=== PATIENT | male | born 1955 | race African-American/Black ===

== ENCOUNTER 2019-04-20 19:49 | Emergency (ER) | payer OTHER ==
--- NOTE | 2019-04-20 19:57 | ED Physician Documentation ---
General Adult - HISTORIAN Historian: patient - HPI Stated Complaint: chest pain Chief Complaint: General Adult Additional Information: Patient presents to ED via EMS from assisted after being found down unresponsive. Patient was in cardiac/pulmonary arrest when found, CPR was started, Narcan 4mg x 5 was given intranasal. Patient regained consciousness. He denies taking any drugs and was complaining of chest pain after CPR. He was placed on 5 liters of oxygen and brought to the ED. Upon arrival he was awake, alert, transferred himself from [facility] to bed. SaO2 90% on room air. Onset: hours (1) Timing: better Severity: severe - ROS CONST: denies: fever EYES/ENT: denies: problems with vision CVS/RESP: chest pain. denies: shortness of breath, cough GI/: denies: vomiting, nausea MS/SKIN/LYMPH: none NEURO/PSYCH: denies: headache - PAST HX Past History: none Other History: none Surgeries/Procedures: none Allergies/Adverse Reactions: Allergies Allergy/AdvReac Type Severity Reaction Status Date / Time No Known Allergies Allergy Verified 04/20/19 20:25 Home Medications: Ambulatory Orders Medication Instructions Recorded NK 04/20/19 - SOCIAL HX Smoking History: cigarettes, greater than 1 pack/day (90 pack year history) Alcohol Use: none Drug Use: none - FAMILY HX Family History: No - REVIEWED ASSESSMENTS Nursing Assessment Reviewed: Yes Vitals Reviewed: Yes Progress - Progress Progress: 2040 Patient states he is still sleepy. Hard to take a deep breath due to chest pain. Will give more Narcan to be safe. 2216 Patient is more awake and alert. SaO2 > 90% since Narcan given. Ok for discharge. - EKG/XRAY/CT Comments: 1954 [address] elevation ED Results Lab/Radiology - Lab Results Lab Results: CBC - WNL CMP - WNL Trop - <0.012 - Radiology Radiology Impressions: Report Submission Date: Apr 20, 2019 8:32:23 PM RATING OFFICER Patient Study Name: CHELA EDWARDS Date: Apr 20, 2019 8:04:01 PM RATING OFFICER Modality Type: DX Gender: M Description: CHEST 1VIEW : 57 Institution: [facility] Physician: RALF QUIROGA CHEST 1VIEW HISTORY: CHEST PAIN FINDINGS: Erect AP portable chest x-ray dated April 20, 2019 at 20:04 demonstrates lungs to be clear of focal infiltrates and expanded bilaterally. Cardiac silhouette and bony thorax are normal. ECG leads overlie the chest obscuring detail. IMPRESSION: No active intrathoracic disease seen. Electronically signed on Apr 20, 2019 8:32:23 PM RATING OFFICER by: Blayne Chávez - Orders Orders: ED Orders Category Date Time Status Place IV Lock 1T Care 04/20/19 19:52 Ordered CHEST 1VIEW [RAD] Stat Exams 04/20/19 Ordered CBC/PLATELET/DIFF Routine Lab 04/20/19 Ordered CMP Routine Lab 04/20/19 Ordered TROPONIN I Stat Lab 04/20/19 Ordered EKG WITH COMPARISON Stat Ther 04/20/19 Ordered General Adult Physical Exam - PHYSICAL EXAM GENERAL APPEARANCE: no distress EENT: YIFAN NECK: normal inspection, supple RESPIRATORY: no resp distress, other (course breath sounds bilaterally) CVS: reg rate & rhythm, heart sounds normal ABDOMEN: soft, normal bowel sounds. No: tenderness BACK: normal inspection SKIN: warm/dry EXTREMITIES: non-tender, no edema NEURO: oriented X3, motor nml, mood/affect nml Discharge Clincal Impression: Musculoskeletal chest pain Acute drug overdose Qualifiers: Encounter type: initial encounter Injury intent: accidental or unintentional Qualified Code(s): T50.901A - Poisoning by unspecified drugs, medicaments and biological substances, accidental (unintentional), initial encounter Referrals: Christoph Shook III, MD [Primary Care Provider] - 2 Days Additional Instructions: 1. Avoid illicit drugs 2. Ibuprofen 600mg every 6 hours as needed for pain 3. Drink plenty of fluids to maintain proper hydration. Avoid caffeine and alcohol 4. Follow up with PCP within 3 days 5. Return to the ER for new or worsening symptoms. Condition: Stable Disposition: 01 HOME, SELF-CARE Decision to Admit: NO Date of Decison to Admit: 04/20/19 Decision Time: 22:07
[2019-04-20] MEDS: IPRATROPIUM/ALBUTEROL SULFATE 3 ML AMPUL.NEB NEB ONE (20:05)
[2019-04-20] MEDS: methylPREDNISolone SOD SUCC 125 MG/2 ML VIAL IVP ONE (20:15)
[2019-04-20] MEDS: NALOXONE HCL 2 MG/2 ML IVP ONE (20:55)
[2019-04-20] MEDS: ONDANSETRON HCL/PF 4 MG/ 2ML VIAL IVP ONE (20:55)
[2019-04-20 22:59] VITALS: BP 116/69
[2019-04-21 07:00] LABS: eGFR (Non-African) > 60
[2019-04-21 07:04] LABS: BASOPHILS % 0.3 % (0.0-1.5); NEUTROPHILS # 2.8 # k/uL (1.4-7.7)
--- NOTE | 2019-04-21 09:08 | Diagnostic Imaging Report ---
[facility] [id number] [facility] [id number] Patient Name: CHELA EDWARDS Referring Physician: RALF VALLECILLO Date of : 1955 Gender: M Date of Service: 04/20/2019 Exam Requested: CHEST 1VIEW CHEST 1VIEW HISTORY: CHEST PAIN FINDINGS: Erect AP portable chest x-ray dated April 20, 2019 at 20:04 demonstrates lungs to be clear of focal infiltrates and expanded bilaterally. Cardiac silhouette and bony thorax are normal. ECG leads overlie the chest obscuring detail. IMPRESSION: No active intrathoracic disease seen. rigida
== END 2019-04-20 22:30 | disposition home or self-care (01) ==
LOC: ED 19:49
DX: R07.89 Other chest pain (principal); T50.901A Poisoning by unspecified drugs, medicaments and biological substances, accidental (unintentional), initial encounter
CPT/HCPCS: 71045; 80053; 84484; 85025; 93005; 94640; 96374; 96375; 96376; 99282; 99284; J2310; J2405; J2930